=== PATIENT | female | born 1940 | race Hispanic/Latino ===

== ENCOUNTER 2023-05-18 14:15 | Emergency (ER) | payer OTHER ==
[~2023-05-18] VITALS: Ht 152.4 cm; Wt 49.9 kg
[2023-05-18 15:19] LABS: HEMATOCRIT 38.7 % (36-48); MEAN CORPUSCULAR HEMOGLOBIN 29.1 pg (27.0-33.0); MEAN CORPUSCULAR HGB CONC 33.6 g/dL (32.0-36.0); MEAN CORPUSCULAR VOLUME 86.8 fL (79-99); PLATELET COUNT (AUTO) 246 K/uL (130-400); RED BLOOD CELL COUNT(AUTO) 4.46 MIL/uL (4.00-5.50); RED CELL DISTRIBUTION WIDTH 13.1 % (11.0-15.5); WHITE BLOOD COUNT (AUTO) 7.7 K/uL (4.8-10.8)
[2023-05-18 15:44] LABS: BAND NEUTROPHILS % (MANUAL) 19 % (0-2); BASOPHILS % (MANUAL) 2 % (0-2); LYMPHOCYTES % (MANUAL) 9 % (22-44); MONOCYTES % (MANUAL) 7 % (2-9); SEGMENTED NEUTROPHILS % 63 % (40-70); TOTAL CELLS COUNTED 100
[2023-05-18 15:45] LABS: MAN.DIFF COMMENT-IMPRESSION MANUAL DIFFERENTIAL; PLATELET MORPHOLOGY COMMENT ADEQUATE; WBC MORPHOLOGY CONSISTENT W/DIFF
[2023-05-18 15:54] LABS: POTASSIUM 4.2 mmol/L (3.5-5.1)
[2023-05-18 15:55] LABS: ADD UA MICROSCOPIC YES; APPEARANCE,URINE CLEAR (CLEAR); BILIRUBIN,URINE NEGATIVE (NEGATIVE); COLOR,URINE YELLOW (YELLOW); GLUCOSE, URINE (UA) >=1000 mg/dL (NEGATIVE); KETONES,URINE NEGATIVE (NEGATIVE); LEUKOCYTE ESTERASE ,URINE 250 Leu/uL (NEGATIVE); NITRATE,URINE 2+ (NEGATIVE); OCCULT BLOOD,URINE SMALL (NEGATIVE); PROTEIN,URINE NEGATIVE (NEGATIVE); UROBILINOGEN,URINE 0.2 mg/dL (0.2-1.0)
[2023-05-18 15:56] LABS: BACTERIA,URINE MOD /HPF (None Seen); MUCUS,URINE RARE LPF (None Seen); SQUAMOUS EPITHELIAL CELL,UR RARE /HPF (0-2); WBC,URINE 51-100 /HPF (0-1)
[2023-05-18 15:59] LABS: ALBUMIN 3.4 g/dL (3.5-5.0); BILIRUBIN,TOTAL 0.1 mg/dL (0.2-1.0); TOTAL PROTEIN, SERUM 7.4 g/dL (6.0-8.3)
[2023-05-18] MEDS ORDERED: NITR100C PO (16:51)
[2023-05-18] MEDS ORDERED: ONDA22I PO (16:51)
[2023-05-18] MEDS ORDERED: POLY17PO4 PO (16:51)
[2023-05-18 17:15] VITALS: BP 129/84; PULSE 90; RESP 18; O2SAT 9
== END 2023-05-18 17:47 | disposition home or self-care (01) ==
LOC: EDH 14:15 → MERGE 14:15 → EDBD 14:15 → EDH 17:47
DX: N30.90 Cystitis, unspecified without hematuria (principal); K59.00 Constipation, unspecified; R11.2 Nausea with vomiting, unspecified; I10 Essential (primary) hypertension; E78.00 Pure hypercholesterolemia, unspecified; E11.9 Type 2 diabetes mellitus without complications; F03.90 Unspecified dementia, unspecified severity, without behavioral disturbance, psychotic disturbance, mood disturbance, and anxiety
CPT/HCPCS: 36415; 71045; 74018; 80053; 81001; 82550; 83874; 84484; 85025; 87077; 87088; 87186; 93005

== ENCOUNTER 2024-06-14 16:47 | Inpatient (IN) | payer OTHER ==
[2024-06-14] VITALS (13 sets, daily range): BP systolic 108–176; BP diastolic 58–90; PULSE 95–99; RESP 17–26; O2SAT 98–99
[~2024-06-14] VITALS: Ht 152.4 cm; Wt 41.0 kg
[~2024-06-14 16:47] MED LIST: NITR100C PO; ONDA22I PO; POLY17PO4 PO
[2024-06-14] MEDS ORDERED: ZOSYN 3.375GM +NS 50ML IV SCH (17:00)
[2024-06-14 17:20] LABS: BASOPHILS # (AUTO) 0.06 K/uL (0.00-0.20); BASOPHILS % (AUTO) 0.2 % (0.0-5.0); EOSINOPHILS # (AUTO) 0.03 K/uL (0.00-0.70); EOSINOPHILS % (AUTO) 0.1 % (0.0-8.0); HEMATOCRIT 48.2 % (36-48); IMMATURE GRANULOCYTE ABSOLUTE 0.28 K/uL (0-1); LYMPHOCYTES # (AUTO) 2.9 K/uL (1.0-4.8); LYMPHOCYTES % (AUTO) 11.3 % (21.0-51.0); MEAN CORPUSCULAR HEMOGLOBIN 27.8 pg (27.0-33.0); MEAN CORPUSCULAR HGB CONC 31.1 g/dL (32.0-36.0); MEAN CORPUSCULAR VOLUME 89.4 fL (79-99); MONOCYTES # (AUTO) 1.8 K/uL (0.1-1.0); NEUTROPHILS # (AUTO) 20.7 K/uL (1.8-7.7); NEUTROPHILS % (AUTO) 80.3 % (40.0-77.0); PLATELET COUNT (AUTO) 431 K/uL (130-400); RED BLOOD CELL COUNT(AUTO) 5.39 MIL/uL (4.00-5.50); RED CELL DISTRIBUTION WIDTH 15.2 % (11.0-15.5); WHITE BLOOD COUNT (AUTO) 25.8 K/uL (4.8-10.8)
--- NOTE | 2024-06-14 17:21 | HMCIMG ---
CHEST 1VW HISTORY: Sepsis COMPARISON: None FINDINGS: A frontal projection of the chest was obtained. No acute pulmonary infiltrates is seen. The heart is normal in size. Mild COPD changes are seen. No evidence of aortic calcification is seen. IMPRESSION: 1. No acute pulmonary infiltrate is seen.
[2024-06-14] MEDS ORDERED: PIP/TAZ ZOSYN 3.375G 3.375 GM VIAL IVPB SCH ×3 (17:30→18:00)
--- NOTE | 2024-06-14 17:35 | ERN ---
General Chief Complaint: Fever Stated Complaint: FEVER Time Seen by MD: 16:40 History of Present Illness Initial Comments 83-year-old female brought in by EMS from home for fever. Patient has a history of dementia, unable to provide history. According to EMS, the patient was on hospice for advanced dementia, but the family reports that the patient got a fever and wants the patient treated with full treatment. Patient is unable to answer any questions. She does not appear in any distress but she has a heart rate of 130 and a fever. Medical history: Hypertension, diabetes, Alzheimer's Allergies: Coded Allergies: No Known Drug Allergies (Unverified Allergy, Unknown, 06/14/24) Home Meds Discontinued Reported Medications Simvastatin (Simvastatin) 5 Mg Tablet, 1 TAB PO HS for 30 Days, #30 TAB 0 Refills 06/14/24 Memantine HCl (Memantine HCl) 5 Mg Tablet, 5 MG PO DAILY, TAB 06/14/24 Quetiapine Fumarate (Quetiapine Fumarate) 50 Mg Tablet, 1 TAB PO HS for 30 Days, #30 TAB 0 Refills 06/14/24 Metformin HCl (Metformin HCl) 500 Mg Tablet, 1 TAB PO BID for 30 Days, #60 TAB 0 Refills 06/14/24 Candesartan Cilexetil (Candesartan Cilexetil) 8 Mg Tablet, 1 TAB PO DAILY for 30 Days, #30 TAB 0 Refills 06/14/24 Past Medical History Past Medical History: Diabetes-Type II, High Cholesterol Medical History Other: ALZHIMER'S, DEMENTIA, Past Surgical History: Other ROS Dictation Unable to obtain due to patient's altered mentation and at baseline Physical Exam Physical Exam Dictation VITAL SIGNS: Reviewed. GENERAL APPEARANCE: Baseline mentation, altered, does not speak, no obvious distress. HEAD AND FACE: Non-traumatic. EYES: PERRL, pink conjunctivas, eyelid no trauma, anterior chamber clear. EARS: Pinnas intact and no signs of trauma or erythema. Ear canals clear and no discharge. TMs no erythema. NOSE: No discharge, no bleeding. OROPHARYNX: Mouth normal, teeth no caries, tongue pink. Pharynx clear, no erythema. Tonsils no exudates, no abscesses noted. Mucous membrane moist. NECK: Supple, non-tender, no thyromegaly, no masses, no JVD, no bruits. BREAST: Deferred. CHEST: No tenderness, no crepitus, no paradoxical movement, no retractions. LUNGS: Clear, well-ventilated, symmetric, no rales, no wheezing, no rhonchi, no stridor, good breath sounds bilaterally. HEART: Regular rate, regular rhythm, no murmur, no gallops. VASCULAR: No peripheral edema. ABDOMEN: Soft, positive bowel sounds, nondistended, no guarding, nontender, no rebound, no masses no hepatomegaly, no splenomegaly, no Davis's sign, no hernias. RECTAL: Deferred. GENITAL: Deferred. NEUROLOGICAL: Normal speech, gross motor function intact, gross sensory function intact. MUSCULOSKELETAL: Neck nontender, full range of motion, back nontender, full range of motion. EXTREMITIES: Nontender, full range of motion. SKIN: Color pink, dry, no turgor, no rash, no lacerations, no abrasions, no contusions. LYMPHATICS: Deferred. Results Laboratory and Microbiology Lab and Micro Result Laboratory Tests Test 06/14/24 17:04 06/14/24 18:36 06/14/24 18:44 White Blood Count 25.8 K/uL (4.8-10.8) H Red Blood Count 5.39 MIL/uL (4.00-5.50) Hemoglobin 15.0 g/dL (12.0-16.0) Hematocrit 48.2 % (36-48) H Mean Corpuscular Volume 89.4 fL (79-99) Mean Corpuscular Hemoglobin 27.8 pg (27.0-33.0) Mean Corpuscular Hemoglobin Concent 31.1 g/dL (32.0-36.0) L Red Cell Distribution Width 15.2 % (11.0-15.5) Platelet Count 431 K/uL (130-400) H Mean Platelet Volume 11.2 fL (7.5-10.5) H Immature Granulocyte % (Auto) 1.1 % (0-1) H Neutrophils (%) (Auto) 80.3 % (40.0-77.0) H Lymphocytes (%) (Auto) 11.3 % (21.0-51.0) L Monocytes (%) (Auto) 7.0 % (3.0-13.0) Eosinophils (%) (Auto) 0.1 % (0.0-8.0) Basophils (%) (Auto) 0.2 % (0.0-5.0) Neutrophils # (Auto) 20.7 K/uL (1.8-7.7) H Lymphocytes # (Auto) 2.9 K/uL (1.0-4.8) Monocytes # (Auto) 1.8 K/uL (0.1-1.0) H Eosinophils # (Auto) 0.03 K/uL (0.00-0.70) Basophils # (Auto) 0.06 K/uL (0.00-0.20) Absolute Immature Granulocyte (auto 0.28 K/uL (0-1) Nucleated Red Blood Cells 0.0 % (0.0-0.19) Sodium Level 162 mmol/L (136-145) *H 165 mmol/L (136-145) *H Potassium Level 3.7 mmol/L (3.5-5.1) 3.5 mmol/L (3.5-5.1) Chloride Level 118 mmol/L (101-111) H 118 mmol/L (101-111) H Carbon Dioxide Level 19 mmol/L (21-32) L 21 mmol/L (21-32) Blood Urea Nitrogen 75 mg/dL (7-18) *H 77 mg/dL (7-18) *H Creatinine 2.4 mg/dL (0.5-1.0) H 2.7 mg/dL (0.5-1.0) H Glomerular Filtration Rate Calc 20 mL/min (>90) 17 mL/min (>90) Random Glucose 801 mg/dL (70-105) *H 859 mg/dL (70-105) *H Lactic Acid Level 4.5 mmol/L (0.8-2.5) H Total Calcium 10.5 mg/dL (8.5-10.1) H 9.7 mg/dL (8.5-10.1) Total Bilirubin 0.4 mg/dL (0.2-1.0) Direct Bilirubin 0.1 mg/dL (0.0-0.3) Aspartate Amino Transf (AST/SGOT) 57 U/L (10-37) H Alanine Aminotransferase (ALT/SGPT) 28 U/L (12-78) Alkaline Phosphatase 155 U/L (50-136) H Total Creatine Kinase 2115 U/L (21-232) *H Troponin I High Sensitivity 83 ng/L (4-50) *H Total Protein 8.3 g/dL (6.0-8.3) Albumin 2.8 g/dL (3.5-5.0) L Urine Color YELLOW (YELLOW) Urine Appearance CLOUDY (CLEAR) H Urine pH 5.0 (5.0-8.0) Urine Specific Leeper 1.028 (1.001-1.031) Urine Protein 20 mg/dL (NEGATIVE) H Urine Glucose (UA) >=1000 mg/dL (NEGATIVE) H Urine Ketones 10 mg/dL (NEGATIVE) H Urine Occult Blood MODERATE (NEGATIVE) H Urine Nitrate NEGATIVE (NEGATIVE) Urine Bilirubin NEGATIVE mg/dL (NEGATIVE) Urine Urobilinogen 0.2 mg/dL (0.2-1.0) Urine Leukocyte Esterase 250 Ita/uL (NEGATIVE) H Urine RBC 2-5 /HPF (0-1) H Urine WBC 11-25 /HPF (0-1) H Urine Squamous Epithelial Cells RARE /HPF (0-2) Urine Bacteria RARE /HPF (None Seen) Urine Yeast RARE /HPF (None Seen) Urine Opiates Screen NEGATIVE (NEGATIVE) Urine Barbiturates Screen NEGATIVE (NEGATIVE) Urine Phencyclidine Screen NEGATIVE (NEGATIVE) Urine Amphetamines Screen NEGATIVE (NEGATIVE) Urine Benzodiazepines Screen NEGATIVE (NEGATIVE) Urine Cocaine Screen NEGATIVE (NEGATIVE) Urine Marijuana (THC) Screen NEGATIVE (NEGATIVE) MDM CC: fever Independent historian: EMS. Patient has dementia unable to provide a reliable history. Comorbidities: Advanced age, hypertension, diabetes Vital signs: Febrile, tachycardic, tachypneic. Stable blood pressure. Concern for sepsis, UTI, pneumonia, deconditioning Labs: Leukocytosis left shift no bands. Chemistry: Hypernatremia 162, BUN elevated 752 creatinine 2.4. Glucose 800. Lactic acid 4.5. CK elevated. Urinalysis positive for infection and glucose UDS negative CT head: Atrophy otherwise unremarkable Chest x-ray: Unremarkable Patient received IV fluids 30 cc/kg, insulin drip started. Vancomycin and Zosyn. On sepsis focused re-evaluation patient has stable perfusion. Blood pressure stable. We will admit for sepsis likely UTI, dehydration, hyperglycemia, KAREN, hypernatremia etc. Hospitalist consulted ED Course Orders Procedure Category Date Status Time Iv Insertion CPOE 06/14/24 Transmitted 16:50 Pulse Ox(Continuous) RT 06/14/24 Transmitted 16:50 Vital Signs Per CPOE 06/14/24 Transmitted Routine 16:50 12 Lead Ekg Tracing- EKG 06/14/24 Complete Technical 16:50 Cbc With Differential LAB 06/14/24 Complete 16:50 Blood Cult SYDNEY 06/14/24 In Process 16:50 Urinalysis Profile LAB 06/14/24 Complete 16:50 Culture Urine SYDNEY 06/14/24 Complete 16:50 Creatine Kinase, Total LAB 06/14/24 Complete 16:50 Troponin I High LAB 06/14/24 Complete Sensitivity 16:50 Lactic Acid LAB 06/14/24 Complete 16:50 Basic Metabolic Panel LAB 06/14/24 Complete 16:50 Chest 1vw RAD 06/14/24 Resulted 17:00 Vancomycin 1g/250ml PHA 06/14/24 Complete Kit (Vancomycin 1g/2 17:00 Hepatic Function Panel LAB 06/14/24 Complete 17:00 0.9%Nacl 1000ml (Ns PHA 06/14/24 Complete 1000ml) 17:30 Pip/Saad Zosyn 3.375g PHA 06/14/24 Complete (Zosyn 3.375 Gram V 18:00 Zosyn 3.375gm+Ns 50ml PHA 06/14/24 Complete (Zosyn 3.375gm+Ns 18:00 0.9%Nacl 1000ml (Ns PHA 06/14/24 Complete 1000ml) 18:30 Basic Metabolic Panel LAB 06/14/24 Complete 18:18 Basic Metabolic Panel LAB 06/14/24 Complete 22:18 Basic Metabolic Panel LAB 06/15/24 Complete 02:18 Basic Metabolic Panel LAB 06/15/24 Complete 06:18 Basic Metabolic Panel LAB 06/15/24 Complete 10:18 Basic Metabolic Panel LAB 06/15/24 Complete 14:18 0.9%Nacl 1000ml (Ns PHA 06/14/24 Complete 1000ml) 18:30 D5w-1/2 Ns/20meq Kcl PHA 06/14/24 Complete (D5w-1/2 Ns/20meq K 18:30 Potassium Chloride PHA 06/14/24 Complete 20meq/10ml (Kcl 20meq 18:30 Magnesium 2gm Premix PHA 06/14/24 Complete 50ml (Magnesium 2gm 18:30 Insulin Regular, PHA 11/10/24 Complete Human 3ml (Humulin R 18:30 Dextrose 5 %-0.45 % PHA 06/14/24 Complete Nacl (D5 1/2ns) 18:30 Zosyn 3.375gm+Ns 50ml PHA 06/14/24 Complete (Zosyn 3.375gm+Ns 18:30 Vital Signs(Adult CPOE 06/14/24 Transmitted Hospitalist) 18:30 Nurse To Enter Home CPOE 06/14/24 Transmitted Medication 18:30 Admit Orders ADM 06/14/24 Transmitted 18:30 Nurse Driven Porras DESHAWN 06/14/24 Complete Removal Pro 18:38 Current Medications Medications (Trade) Dose Ordered Sig/Karen Route PRN Reason Start Time Stop Time Status Last Admin Dose Admin Dextrose/Sodium Chloride 1,000 ml @ 0 mls/hr AD IV 06/14/24 18:30 06/15/24 09:09 DC Insulin Human Regular 100 unit/ Sodium Chloride 101 ml @ 0 mls/hr PROTOCOL IV 06/14/24 18:30 06/15/24 10:20 DC Magnesium Sulfate 50 ml @ 0 mls/hr PROTOCOL IV 06/14/24 18:30 06/15/24 17:58 DC Piperacillin Sod/ Tazobactam Sod 50 ml @ 12.5 mls/hr Q8H IVPB 06/14/24 18:00 06/15/24 17:58 DC 06/15/24 09:06 Piperacillin Sod/ Tazobactam Sod 50 ml @ 12.5 mls/hr Q8H IVPB 06/14/24 18:30 06/14/24 18:24 DC Piperacillin Sod/ Tazobactam Sod (Zosyn 3.375gm+NS 50ml) 3.375 gm Q8H IV 06/14/24 17:00 06/24/24 16:59 UNV Piperacillin Sod/ Tazobactam Sod (Zosyn 3.375 Gram Vial) 3.375 gm Q8H IVPB 06/14/24 17:30 06/24/24 17:29 Cancel Piperacillin Sod/ Tazobactam Sod (Zosyn 3.375 Gram Vial) 3.375 gm Q8H IVPB 06/14/24 18:00 06/14/24 17:51 DC Piperacillin Sod/ Tazobactam Sod (Zosyn 3.375 Gram Vial) 3.375 gm Q8H IVPB 06/14/24 18:00 06/24/24 17:59 Cancel Potassium Chloride 20 meq/ Sodium Chloride 1,010 ml @ 0 mls/hr PROTOCOL IV 06/14/24 18:30 06/15/24 09:09 DC 06/14/24 19:42 Potassium Chloride/Dextrose/ Sod Cl 1,000 ml @ 0 mls/hr AD IV 06/14/24 18:30 06/15/24 09:09 DC 06/15/24 09:07 Sodium Chloride 1,000 ml @ 0 mls/hr ONCE ONCE IV 06/14/24 17:30 06/14/24 17:31 DC 06/14/24 17:53 Sodium Chloride 1,000 ml @ 0 mls/hr ONCE ONCE IV 06/14/24 18:30 06/14/24 18:31 DC 06/14/24 18:45 Sodium Chloride 1,000 ml @ 200 mls/hr PROTOCOL IV 06/14/24 18:30 06/15/24 09:09 DC 06/14/24 19:42 Vancomycin HCl (Vancomycin 1g/ 250ml Kit) 1 gm Q12H IV 06/14/24 17:00 06/15/24 00:13 DC 06/14/24 18:45 Vital Signs Date Time Temp Pulse Resp B/P (MAP) Pulse Ox O2 Delivery O2 Flow Rate FiO2 06/14/24 16:51 100.9 130 24 123/85 98 DX & DISP Disposition: Inpatient Departure Impression: Primary Impression: Sepsis Additional Impressions: KAREN (acute kidney injury), Hyperosmolar hyperglycemic state (HHS), Rhabdomyolysis, Elevated troponin, Hypernatremia Critical Time: 30 minutes (Critical Care Procedure NoteAuthorized and Performed by: meTotal critical care time: Approximately 36 minutesDue to a high probability of clinically significant, life threatening deterioration, the patient required my highest level of preparedness to intervene emergently and I personally spent this critical care time directly and personally managing the patient. This critical care time included obtaining a history; examining the patient; pulse oximetry; ordering and review of studies; arranging urgent treatment with development of a management plan; evaluation of patient's response to treatment; frequent reassessment; and, discussions with other providers.This critical care time was performed to assess and manage the high probability of imminent, life-threatening deterioration that could result in multi-organ failure. It was exclusive of separately billable procedures and treating other patients and teaching time.Please see MDM section and the rest of the note for further information on patient assessment and treatment.) Condition: Stable Referrals: CHRISTIAN STOREY MD (PCP) MARC COOLEY DO Jun 14, 2024 17:35
[2024-06-14] MEDS: 0.9%NACL 1000ML 1,000 ML IV ONE ×2 (17:53→18:45)
[2024-06-14] MEDS: ZOSYN 3.375GM+NS 50ML 50 ML IVPB SCH (17:53)
--- NOTE | 2024-06-14 17:57 | EKG ---
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
[2024-06-14 18:00] LABS: CREATININE 2.4 mg/dL (0.5-1.0); POTASSIUM 3.7 mmol/L (3.5-5.1)
[2024-06-14 18:01] LABS: BILIRUBIN,DIRECT 0.1 mg/dL (0.0-0.3); BILIRUBIN,TOTAL 0.4 mg/dL (0.2-1.0); TOTAL PROTEIN, SERUM 8.3 g/dL (6.0-8.3)
[2024-06-14 18:07] LABS: ALBUMIN 2.8 g/dL (3.5-5.0)
[2024-06-14] MEDS ORDERED: MAGNESIUM 2GM PREMIX 50ML 50 ML IV SCH (18:30)
[2024-06-14] MEDS ORDERED: INSULIN REGULAR, HUMAN 3ML 100 UNIT in 0.9%NACL 100ML 100 ML IV SCH (18:30)
[2024-06-14] MEDS ORDERED: DEXTROSE 5 %-0.45 % NACL 1,000 ML IV SCH (18:30)
[2024-06-14] MEDS ORDERED: ZOSYN 3.375GM+NS 50ML 50 ML IVPB SCH (18:30)
[2024-06-14] MEDS: VANCOMYCIN KIT 1 GM/250 ML IV.KIT IV SCH (18:45)
[2024-06-14 18:53] LABS: CREATININE 2.7 mg/dL (0.5-1.0); POTASSIUM 3.5 mmol/L (3.5-5.1)
[2024-06-14] MEDS ORDERED: hydrALAZine 20MG/ML VIAL IV PRN (19:00)
[2024-06-14] MEDS ORDERED: ondanSETRON 4MG INJ IVP PRN (19:00)
[2024-06-14] MEDS ORDERED: LAbetaLOL 20MG SYG IV PRN (19:00)
[2024-06-14] MEDS ORDERED: acetaMINOPHEN 650 MG SUPPOSITORY RC PRN (19:00)
[2024-06-14] MEDS ORDERED: HYDROcodone/APAP 5/325 1 TAB TABLET PO PRN (19:00)
[2024-06-14] MEDS ORDERED: acetaMINOPHEN 325 MG TAB PO PRN (19:00)
[2024-06-14 19:01] LABS: APPEARANCE,URINE CLOUDY (CLEAR); BILIRUBIN,URINE NEGATIVE (NEGATIVE); COLOR,URINE YELLOW (YELLOW); GLUCOSE, URINE (UA) >=1000 mg/dL (NEGATIVE); KETONES,URINE 10 mg/dL (NEGATIVE); LEUKOCYTE ESTERASE ,URINE 250 Leu/uL (NEGATIVE); NITRATE,URINE NEGATIVE (NEGATIVE); OCCULT BLOOD,URINE MODERATE (NEGATIVE); PROTEIN,URINE 20 mg/dL (NEGATIVE); UROBILINOGEN,URINE 0.2 mg/dL (0.2-1.0)
[2024-06-14 19:11] LABS: ADD UA MICROSCOPIC YES
[2024-06-14 19:14] LABS: BACTERIA,URINE RARE /HPF (None Seen); MUCUS,URINE MOD LPF (None Seen); SQUAMOUS EPITHELIAL CELL,UR RARE /HPF (0-2); YEAST,URINE BUDDING RARE /HPF (None Seen)
[2024-06-14] MEDS: PoTASSium chloRIDE 20MEQ/10ML 20 MEQ in 0.9%NACL 1000ML 1,000 ML IV SCH (19:42)
[2024-06-14] MEDS: 0.9%NACL 1000ML 1,000 ML IV SCH (19:42)
[2024-06-14] MEDS: PoTASSium chloRIDE 20MEQ/100ML 100 ML IV ONE (19:43)
--- NOTE | 2024-06-14 21:00 | HP ---
[facility] HISTORY & PHYSICAL Date Patient Seen: Jun 14, 2024 Time of Visit: 21:00 Supervising Physician: Dr. Sherif Mcdonald Primary Care Physician: Dr Bustamante Outpatient Specialists: [ ] Inpatient Consults: [ ] PROBLEM LIST: Acute metabolic encephalopathy, POA Acute kidney injury, POA Rhabdomyolysis, POA HHS, normal bicarb level on initial BMP, POA Severe dehydration, POA Severe hypernatremia, POA Urinary tract infection, POA Severe sepsis, POA NSTEMI, EKG unremarkable, POA Feeding difficulty in adult, POA Electrolyte abnormality, POA Hypercalcemia, POA Lactic acidosis, likely starvation ketosis POA PLAN: Admit to ICU VS per ICU protocol Keep head of bed above 30 Aspiration precautions Keep patient NPO Continue insulin drip Trend troponin level Trend CK level Trend lactic acid level Continue empiric antibiotics Insert Porras catheter Insert NGT Obtain CT scan of the head Intubation watch Follow up code status with family Treat fever aggressively Continue free water at 150 cc/hour Continue serial labs per DKA protocol Turn patient accordingly Bilateral SCDs Avoid nephrotoxic agents Renally dose all medications Obtain a ultrasound Follow up culture results CBC, CMP, magnesium level daily Continue cardiac monitoring HPI: 83-year-old female with past medical history of early dementia, hypertension, DM type 2, hyperlipidemia who presented to ER from a local assisted living facility with complaint of generalized body weakness, alteration in mental status and found to have KAREN, severe hypernatremia, severe sepsis, acute metabolic encephalopathy, rhabdomyolysis, urinary tract infection, and HHS. Patient was seen and examined in ED with her niece present at bedside. According to her, her provided called them initially and informed them of her current condition and says that he will call EMS so that patient will be evaluated in the emergency room. In ED patient was found to be severely encephalopathic, looks very weak, and unable to answer questions appropriately. In ED chest x-ray was done and showed no acute intrapulmonary process, however [place] [address], hemoglobin of 15 , and hematocrit of 48, her chemistry is significant for sodium level of 162, serum glucose of 800, creatinine level of 2.4, BUN of 75, initial troponin level of 83, and CK level of more than 2100. Her lactic acid was also elevated at 4.5. Her UA is significant for leukoesterase there is also mild ketonuria. COVID and flu tests are currently pending at this time. In ED patient was started on IV fluids, empiric antibiotics, and insulin drip per [facility] protocol. We will obtain renal ultrasound and stat head CT. Patient is unmarried, and does not have any children. Her POA is her sister. Apparently patient was hospice but family verbalized desire for medical management. Waiting for family members to decide on code status at this time. Unable to complete ROS due to current mental state. Patient is encephalopathic and unable to answer questions appropriately, visibly weak and nonverbal. At present patient is currently hemodynamically stable, afebrile, and currently on insulin drip. We will start patient on free water flushes via NGT and we will do serial labs per [facility] protocol. PAST MEDICAL HX: see above PAST SURGICAL HX: noncontributory SOCIAL HISTORY: No tobacco, ETOH, or illicit drug use Coded Allergies: No Known Drug Allergies (Unverified Allergy, Unknown, 06/14/24) REVIEW OF SYSTEMS: Unable to obtain due to altered mental status PHYSICAL EXAM: GENERAL: Confused, looks very weak, encephalopathic HEENT: Very dry mucous membrane NECK: Supple, no JVD, trachea midline LUNGS: Clear breath sounds bilaterally. No wheezes HEART: Regular rate and rhythm. Normal S1 and S2, without murmurs ABD: Abdomen soft, nontender. Bowel sounds present EXT: No clubbing cyanosis or edema NEURO: Encephalopathic Vital Signs (last 8hr) Date Time Temp Pulse Resp B/P (MAP) Pulse Ox O2 Delivery O2 Flow Rate FiO2 06/14/24 16:51 100.9 130 24 123/85 98 LABS: Hematology Labs: Test 06/14/24 17:04 Range/Units White Blood Count 25.8 H 4.8-10.8 K/uL Red Blood Count 5.39 4.00-5.50 MIL/uL Hemoglobin 15.0 12.0-16.0 g/dL Hematocrit 48.2 H 36-48 % Mean Corpuscular Volume 89.4 79-99 fL Mean Corpuscular Hemoglobin 27.8 27.0-33.0 pg Mean Corpuscular Hemoglobin Concent 31.1 L 32.0-36.0 g/dL Red Cell Distribution Width 15.2 11.0-15.5 % Platelet Count 431 H 130-400 K/uL Mean Platelet Volume 11.2 H 7.5-10.5 fL Immature Granulocyte % (Auto) 1.1 H 0-1 % Neutrophils (%) (Auto) 80.3 H 40.0-77.0 % Lymphocytes (%) (Auto) 11.3 L 21.0-51.0 % Monocytes (%) (Auto) 7.0 3.0-13.0 % Eosinophils (%) (Auto) 0.1 0.0-8.0 % Basophils (%) (Auto) 0.2 0.0-5.0 % Neutrophils # (Auto) 20.7 H 1.8-7.7 K/uL Lymphocytes # (Auto) 2.9 1.0-4.8 K/uL Monocytes # (Auto) 1.8 H 0.1-1.0 K/uL Eosinophils # (Auto) 0.03 0.00-0.70 K/uL Basophils # (Auto) 0.06 0.00-0.20 K/uL Absolute Immature Granulocyte (auto 0.28 0-1 K/uL Nucleated Red Blood Cells 0.0 0.0-0.19 % Chemistry Labs: Test 06/14/24 19:46 06/14/24 18:36 06/14/24 17:04 Range/Units Whole Blood Glucose > 600 *H 70-110 MG/DL Bedside Glucose Comment Protocol Initiated Sodium Level 165 *H 136-145 mmol/L Potassium Level 3.5 3.5-5.1 mmol/L Chloride Level 118 H 101-111 mmol/L Carbon Dioxide Level 21 21-32 mmol/L Blood Urea Nitrogen 77 *H 7-18 mg/dL Creatinine 2.7 H 0.5-1.0 mg/dL Glomerular Filtration Rate Calc 17 >90 mL/min Random Glucose 859 *H 70-105 mg/dL Total Calcium 9.7 8.5-10.1 mg/dL Lactic Acid Level 4.5 H 0.8-2.5 mmol/L Total Bilirubin 0.4 0.2-1.0 mg/dL Direct Bilirubin 0.1 0.0-0.3 mg/dL Aspartate Amino Transf (AST/SGOT) 57 H 10-37 U/L Alanine Aminotransferase (ALT/SGPT) 28 12-78 U/L Alkaline Phosphatase 155 H 50-136 U/L Total Creatine Kinase 2115 *H 21-232 U/L Troponin I High Sensitivity 83 *H 4-50 ng/L Total Protein 8.3 6.0-8.3 g/dL Albumin 2.8 L 3.5-5.0 g/dL DIAGNOSTICS / RADIOLOGY RESULTS: CHEST 1VW HISTORY: Sepsis COMPARISON: None FINDINGS: A frontal projection of the chest was obtained. No acute pulmonary infiltrates is seen. The heart is normal in size. Mild COPD changes are seen. No evidence of aortic calcification is seen. IMPRESSION: 1. No acute pulmonary infiltrate is seen. PLAN NEURO: Minimize central acting medications as possible. Fall Precautions. Well lighted room through the day and minimize interruptions through the night to prevent acute delirium. PULMONARY: Supplemental 02 as needed Titrate Fio2 to keep Spo2 > or = 90% DuoNebs and CPT as needed IS hourly while awake for pulmonary hygiene Out of bed to chair as tolerated VAP Bundle CARDIOVASCULAR: Follow hemodynamics. Titrate vasopressor to keep MAP >65 or systolic blood pressure >95mmHg DIPS: Insulin LINES: PIV, Porras GI & NUTRITION: NPO Insert NGT Aspirations precautions Prokinetic agents and laxatives as needed KIDNEYS & ELECTROLYTES: Strict monitoring of intake and output Daily weights Avoid nephrotoxic agents Monitor electrolytes and replace as needed Goal urine output of 30mL/hr or 0.5mL/kg/hr ENDOCRINE: Maintain blood glucose between 100-180 at all times. Insulin sliding scale for blood glucose management INFECTIOUS DISEASE: Trend temperature. Roe-culture if febrile. Micro: [ ] Antibiotics: Vancomycin and Zosyn HEMATOLOGY & COAGULATION: Monitor H&H. Keep Hgb > 7 Transfuse 1 unit of PRBC for Hgb < 7 Transfuse 1 pack of platelets of platelets < 20, 000 Watch for any signs and symptoms of bleeding SKIN: Pressure ulcer prevention per facility protocol Rehab: PT/OT Prophylaxis: GI: PPI DVT: Bilateral SCDs Code Status: Full Resuscitation Disposition: ICU Other: Total patient care time exceeds 35 minutes excluding all procedures. Supervising physician: INES Jennings AGACNP Jun 14, 2024 21:00
[2024-06-14] MEDS ORDERED: SIMV5TAB58 PO (22:33)
[2024-06-14] MEDS ORDERED: METF-444 PO (22:33)
[2024-06-14] MEDS ORDERED: MEMA5TAB16 PO (22:33)
[2024-06-14] MEDS ORDERED: CAND8TAB14 PO (22:33)
[2024-06-14] MEDS ORDERED: QUET50TA24 PO (22:33)
[2024-06-14] MEDS: PANTOPrazole 40 MG/VIAL IVP SCH (23:10)
[2024-06-14] MEDS: HEParin 5,000 UNIT VIAL SQ SCH (23:11)
[2024-06-14 23:19] LABS: CREATININE 2.4 mg/dL (0.5-1.0)
[2024-06-14] MEDS: ALBUMIN (HUMAN) 5% 500 ML IV SCH (23:22)
[2024-06-14] MEDS: IpraTROPium 0.5 MG/2.5 ML INH IH SCH (23:23)
[2024-06-14] MEDS: IpraTROPium 0.5 MG/2.5 ML INH IH ONE (23:28)
[2024-06-15] VITALS (29 sets, daily range): BP systolic 123–188; BP diastolic 55–111; PULSE 70–99; RESP 13–36; TEMP 98.5–100.5; O2SAT 97–100
[2024-06-15 00:05] LABS: AMPHET/METH SCREEN,URINE NEGATIVE (NEGATIVE); BARBITURATE SCREEN, URINE NEGATIVE (NEGATIVE); BENZODIAZEPINES SCREEN,URINE NEGATIVE (NEGATIVE); CANNABINOID SCREEN,URINE NEGATIVE (NEGATIVE); COCAINE SCREEN,URINE NEGATIVE (NEGATIVE); OPIATE SCREEN,URINE NEGATIVE (NEGATIVE); PHENCYCLIDINE SCREEN,URINE NEGATIVE (NEGATIVE)
[2024-06-15] MEDS ORDERED: VANCOMYCIN PROTOCOL PER PHARMACY IV SCH (00:30)
[2024-06-15] MEDS: PoTASSium chloRIDE 10MEQ/100ML 100 ML IV PRN (00:45)
--- NOTE | 2024-06-15 01:23 | HMCIMG ---
US RENAL SONOGRAM HISTORY: Acute renal insufficiency COMPARISON: None TECHNIQUE: Renal and bladder ultrasound study was performed. FINDINGS: The right kidney measures 8.5 x 3.1 x 4.3 cm. The left kidney is not well seen due to overlying bowel gas. No hydronephrosis is seen of the right kidney. Bladder is poorly distended with Porras catheter. IMPRESSION: 1. Left kidney is not well visualized. No right hydronephrosis is seen.
[2024-06-15 01:50] LABS: CREATININE 2.5 mg/dL (0.5-1.0)
[2024-06-15 04:44] LABS: BASOPHILS # (AUTO) 0.04 K/uL (0.00-0.20); BASOPHILS % (AUTO) 0.3 % (0.0-5.0); EOSINOPHILS # (AUTO) 0.08 K/uL (0.00-0.70); EOSINOPHILS % (AUTO) 0.5 % (0.0-8.0); HEMATOCRIT 38.3 % (36-48); IMMATURE GRANULOCYTE ABSOLUTE 0.17 K/uL (0-1); LYMPHOCYTES # (AUTO) 2.4 K/uL (1.0-4.8); MEAN CORPUSCULAR HEMOGLOBIN 28.5 pg (27.0-33.0); MEAN CORPUSCULAR HGB CONC 31.1 g/dL (32.0-36.0); MEAN CORPUSCULAR VOLUME 91.6 fL (79-99); MONOCYTES # (AUTO) 0.6 K/uL (0.1-1.0); MONOCYTES % (AUTO) 3.8 % (3.0-13.0); NEUTROPHILS # (AUTO) 12.6 K/uL (1.8-7.7); NEUTROPHILS % (AUTO) 79.3 % (40.0-77.0); PLATELET COUNT (AUTO) 103 K/uL (130-400); RED BLOOD CELL COUNT(AUTO) 4.18 MIL/uL (4.00-5.50); RED CELL DISTRIBUTION WIDTH 15.3 % (11.0-15.5); WHITE BLOOD COUNT (AUTO) 15.9 K/uL (4.8-10.8)
[2024-06-15 05:12] LABS: % IRON SATURATION 30.6 % (22-44)
[2024-06-15 05:33] LABS: SODIUM SERUM 162 mmol/L (136-145)
[2024-06-15 05:34] LABS: CARBON DIOXIDE 24 mmol/L (21-32); CHLORIDE 123 mmol/L (101-111); CREATININE 2.1 mg/dL (0.5-1.0); GLUCOSE,RANDOM 441 mg/dL (70-105); UREA NITROGEN, BLOOD 62 mg/dL (7-18)
[2024-06-15 05:35] LABS: AMMONIA < 10 umol/L (11-32); CREATINE KINASE, TOTAL 6778 U/L (21-232); GLOMERULAR FILTR. RATE CALC 2 mL/min (>90); PHOSPHORUS 2.3 mg/dL (2.5-4.9)
[2024-06-15 05:36] LABS: THYROID STIMULATING HORMONE 1.66 uIU/mL (0.36-3.74)
[2024-06-15 06:22] LABS: HEMOGLOBIN A1C 11.6 % (4.0-6.0)
[2024-06-15 07:17] LABS: CREATININE 1.9 mg/dL (0.5-1.0); POTASSIUM 3.7 mmol/L (3.5-5.1)
--- NOTE | 2024-06-15 08:20 | HMCIMG ---
Exam: NONCONTRAST CT BRAIN REASON: AMS. COMPARISON: None. TECHNIQUE: Images are obtained from vertex to the skull base. The exam was performed without IV contrast. FINDINGS: There are generous ventricles and sulci. There is decreased attenuation in the deep central white matter. These findings are consistent with atrophy. There are no acute appearing focal parenchymal lesions. There is no evidence of mass, intracranial hemorrhage or acute stroke. Posterior fossa and brainstem structures appear unremarkable. There are no abnormal fluid collections. Extra cranial soft tissues appear unremarkable as well. IMPRESSION: 1. Atrophy, no acute finding. CT was performed with one or more following dose reduction techniques: automated exposure control, adjustment of the mA and kv according to patient's size, or use of a iterative reconstruction technique.
[2024-06-15] MEDS: D5W-1/2 NS/20MEQ KCL 1,000 ML IV SCH (09:07)
[2024-06-15] MEDS ORDERED: PoTASSium chl 10% ELIXIR 20MEQ 20 MEQ/15 ML UDCUP PO PRN (09:30)
[2024-06-15] MEDS ORDERED: PoTASSium chloRIDE 20MEQ ER 20 MEQ ERTAB PO PRN (09:30)
[2024-06-15] MEDS ORDERED: PoTASSium chloRIDE 20MEQ/100ML 100 ML IV PRN ×2 (09:30)
--- NOTE | 2024-06-15 09:42 | PN ---
[facility] PROGRESS NOTE Date Patient Seen: Jun 15, 2024 Time of Visit: 09:41 Supervising Physician: Cuong Gutierrez MD Primary Care Physician: Dr Bustamante Outpatient Specialists: [ ] Inpatient Consults: [ ] PROBLEM LIST: Acute metabolic encephalopathy, POA Acute kidney injury, POA Rhabdomyolysis, POA HHS, normal bicarb level on initial BMP, POA Severe dehydration, POA Severe hypernatremia, POA Urinary tract infection, POA Severe sepsis, POA NSTEMI, EKG unremarkable, POA Feeding difficulty in adult, POA Electrolyte abnormality, POA Hypercalcemia, POA Lactic acidosis, likely starvation ketosis POA Suspect right leg ischemia, POA PLAN: Admit to ICU VS per ICU protocol Keep head of bed above 30 Aspiration precautions Keep patient NPO Continue insulin drip Trend troponin level Trend CK level Trend lactic acid level Continue empiric antibiotics Insert Porras catheter Insert NGT Obtain CT scan of the head Intubation watch Follow up code status with family Treat fever aggressively Continue free water at 150 cc/hour Continue serial labs per DKA protocol Turn patient accordingly Bilateral SCDs Avoid nephrotoxic agents Renally dose all medications Obtain a ultrasound Follow up culture results CBC, CMP, magnesium level daily Continue cardiac monitoring INTERVAL HISTORY: Patient continues encephalopathic, altered and lethargic. Patient does not answer to name follow commands. Moans and grimaces. Right lower extremity discolored and cold to touch. Nonpalpable pulse to right foot. On heparin drip per protocol for NSTEMI. Patient has been afebrile since yesterday with a T-max of 100.9. She has been hemodynamically stable with a blood pressure 138/62 with a heart rate in the 80s saturating 96% on room air, urine output 1.3 L. on laboratory today white count decreased to 15.9 H&H 11.9/38.3 with a platelet count of [id number]. Lactic acid 5.4 this morning. Sodium 167 chloride 131 BUN 24 creatinine 1.5 with a GFR of 34 slightly improving glucose 144 mg/dL total calcium 8.3 magnesium 1.7 LR 30 mL/kilogram of isotonic fluids ordered and administered per RN. IV fluids changed to D5 at 75 mL/hour. Patient continues on insulin drip. Ultrasound arterial bilateral lower extremity shows absent blood flow with pulling the entire right leg from common femoral artery down work. No evidence of inflow occlusion of the left. Right leg shows partial DVT in the right proximal and mid superficial femoral vein. Spoke to main decision maker over the phone Sandy Crawford, she is unable to come in person to the hospital due to receiving cancer treatment at this time. I discussed with her the current patient findings and informed per patient has grim prognosis. Patient is currently DNR and was previously on hospice. Recommended hospice and comfort measures to avoid suffering. Sandy Crawford main decision maker has agreed for comfort measures only and wishes to stop further painful testing such as needed sticks or painful procedures. She requested for patient to be in comfort measures only while she awaits for hospice evaluation for inpatient Hospice or out of hospital hospice. Notified casework specialist Daisy. REVIEW OF SYSTEMS: Unable to obtain due to altered mental status PHYSICAL EXAM: GENERAL: Confused, looks very weak, encephalopathic HEENT: Very dry mucous membrane NECK: Supple, no JVD, trachea midline LUNGS: Clear breath sounds bilaterally. No wheezes HEART: Regular rate and rhythm. Normal S1 and S2, without murmurs ABD: Abdomen soft, nontender. Bowel sounds present EXT: No clubbing cyanosis or edema, right lower extremity discoloration cold to touch absent right pedal pulse. NEURO: Encephalopathic Vital Signs (last 8hr) Date Time Temp Pulse Resp B/P (MAP) Pulse Ox O2 Delivery O2 Flow Rate FiO2 06/15/24 08:30 82 35 188/111 100 Room Air 06/15/24 08:00 84 31 152/68 100 Room Air 06/15/24 07:30 85 28 148/65 100 Room Air 06/15/24 07:00 82 27 141/79 100 Room Air 06/15/24 06:30 81 32 135/68 100 Room Air 06/15/24 06:27 84 18 06/15/24 06:00 85 28 145/60 100 Room Air 06/15/24 05:30 84 30 143/58 100 Room Air 06/15/24 05:00 86 33 144/70 100 Room Air 06/15/24 04:30 82 27 142/61 100 Room Air 06/15/24 04:00 89 36 138/58 100 Room Air 06/15/24 04:00 99 Room Air* 0 21 06/15/24 03:00 96 23 140/72 100 Room Air 06/15/24 02:30 91 32 159/82 100 Room Air 06/15/24 02:00 90 30 153/66 100 Room Air LABS: Hematology Labs: Test 06/15/24 04:13 Range/Units White Blood Count 15.9 #H 4.8-10.8 K/uL Red Blood Count 4.18 # 4.00-5.50 MIL/uL Hemoglobin 11.9 #L 12.0-16.0 g/dL Hematocrit 38.3 # 36-48 % Mean Corpuscular Volume 91.6 79-99 fL Mean Corpuscular Hemoglobin 28.5 27.0-33.0 pg Mean Corpuscular Hemoglobin Concent 31.1 L 32.0-36.0 g/dL Red Cell Distribution Width 15.3 11.0-15.5 % Platelet Count 103 #L 130-400 K/uL Mean Platelet Volume 10.0 7.5-10.5 fL Immature Granulocyte % (Auto) 1.1 H 0-1 % Neutrophils (%) (Auto) 79.3 H 40.0-77.0 % Lymphocytes (%) (Auto) 15.0 L 21.0-51.0 % Monocytes (%) (Auto) 3.8 3.0-13.0 % Eosinophils (%) (Auto) 0.5 0.0-8.0 % Basophils (%) (Auto) 0.3 0.0-5.0 % Neutrophils # (Auto) 12.6 H 1.8-7.7 K/uL Lymphocytes # (Auto) 2.4 1.0-4.8 K/uL Monocytes # (Auto) 0.6 0.1-1.0 K/uL Eosinophils # (Auto) 0.08 0.00-0.70 K/uL Basophils # (Auto) 0.04 0.00-0.20 K/uL Absolute Immature Granulocyte (auto 0.17 0-1 K/uL Nucleated Red Blood Cells 0.0 0.0-0.19 % Chemistry Labs: Test 06/15/24 08:56 06/15/24 07:02 06/15/24 04:13 06/15/24 02:56 Range/Units Whole Blood Glucose 174 H 70-110 MG/DL Sodium Level 169 *H 136-145 mmol/L Potassium Level 3.7 3.5-5.1 mmol/L Chloride Level 131 *H 101-111 mmol/L Carbon Dioxide Level 24 21-32 mmol/L Blood Urea Nitrogen 61 H 7-18 mg/dL Creatinine 1.9 H 0.5-1.0 mg/dL Glomerular Filtration Rate Calc 26 >90 mL/min Random Glucose 339 H 70-105 mg/dL Lactic Acid Level 5.4 H 0.8-2.5 mmol/L Total Calcium 8.5 8.5-10.1 mg/dL Hemoglobin A1c 11.6 H 4.0-6.0 % Estimated Average Glucose (eAG) 286 H 70-126 mg/dL Phosphorus Level 2.3 L 2.5-4.9 mg/dL Magnesium Level 1.90 1.80-2.40 mg/dL Iron Level 34 L 50-170 mcg/dL Total Iron Binding Capacity 111 L 250-450 mcg/dL Percent Iron Saturation 30.6 22-44 % Ammonia < 10 L 11-32 umol/L Total Creatine Kinase 6778 #*H 21-232 U/L Troponin I High Sensitivity 468.2 *H 4-50 ng/L Procalcitonin 0.92 H 0.05-0.5 ng/mL Thyroid Stimulating Hormone (TSH) 1.66 0.36-3.74 uIU/mL Bedside Glucose Comment Notified Nurse Test 06/14/24 17:04 Range/Units Total Bilirubin 0.4 0.2-1.0 mg/dL Direct Bilirubin 0.1 0.0-0.3 mg/dL Aspartate Amino Transf (AST/SGOT) 57 H 10-37 U/L Alanine Aminotransferase (ALT/SGPT) 28 12-78 U/L Alkaline Phosphatase 155 H 50-136 U/L Total Protein 8.3 6.0-8.3 g/dL Albumin 2.8 L 3.5-5.0 g/dL DIAGNOSTICS / RADIOLOGY RESULTS: Signed PATIENT: MITCHELL HAAS MR#: [id number] : 1940 SEX: F AGE: 83 LOCATION: 2BH ORDER 3 [facility]US: [facility] REPORT#: [id number] SERVICE 4 REASON: asses fro dvt ORDERING PHYSICIAN: MILADY ARTEAGA PROCEDURE: ART B LE - US ARTERIAL BILAT LOW EXT DUPL US ARTERIAL BILAT LOW EXT DUPL REASON: asses fro dvt COMPARISON: None TECHNIQUE: Bilateral lower extremity arterial Doppler evaluation was performed with spectral analysis and color flow imaging. FINDINGS: Right lower extremity shows no visible flow. This is true from common femoral artery through the foot. Left lower extremity shows biphasic waveforms common femoral artery through the popliteal artery. Biphasic waveforms are present posterior tibial, anterior tibial and dorsalis pedis arteries as well. There is no evidence of significant arterial inflow occlusion on the left. Impression: 1. Absent blood flow visible in the entire right leg from common femoral artery downward. 2. No evidence of inflow occlusion on the left. 3. These findings discussed with patient's care team at the time of dictation. Bilateral venous Doppler ultrasound was performed as well. There are normal findings on the left. Right leg shows partial deep venous thrombosis in the right proximal and mid superficial femoral vein DICTATED BY: ROBERTA MONACO MD DATE: 06/15/241436 ELECTRONICALLY SIGNED BY: ROBERTA MONACO MD DATE: 06/15/24 1447 PLAN Patient DNR Arterial ultrasound of bilateral lower extremities Isotonic fluids 30 mL/kilogram Stop all other IV fluids and start D5 NS at 75 mL/kilogram Discuss goals of care with decision maker Recommend medical affairs manager for evaluation of general inpatient hospice versus other hospital hospice. After discussing ultrasound arterial of right lower extremity findings with family and decision maker. Decision was made by Sandy Crawford for comfort measures only and hospice. NEURO: Minimize central acting medications as possible. Fall Precautions. Well lighted room through the day and minimize interruptions through the night to prevent acute delirium. PULMONARY: Supplemental 02 as needed Titrate Fio2 to keep Spo2 > or = 90% DuoNebs and CPT as needed IS hourly while awake for pulmonary hygiene Out of bed to chair as tolerated VAP Bundle CARDIOVASCULAR: Follow hemodynamics. Titrate vasopressor to keep MAP >65 or systolic blood pressure >95mmHg DIPS: Insulin LINES: PIV, Porras GI & NUTRITION: NPO Insert NGT Aspirations precautions Prokinetic agents and laxatives as needed KIDNEYS & ELECTROLYTES: Strict monitoring of intake and output Daily weights Avoid nephrotoxic agents Monitor electrolytes and replace as needed Goal urine output of 30mL/hr or 0.5mL/kg/hr ENDOCRINE: Maintain blood glucose between 100-180 at all times. Insulin sliding scale for blood glucose management INFECTIOUS DISEASE: Trend temperature. Roe-culture if febrile. Micro: [ ] Antibiotics: Vancomycin and Zosyn HEMATOLOGY & COAGULATION: Monitor H&H. Keep Hgb > 7 Transfuse 1 unit of PRBC for Hgb < 7 Transfuse 1 pack of platelets of platelets < 20, 000 Watch for any signs and symptoms of bleeding SKIN: Pressure ulcer prevention per facility protocol Rehab: PT/OT Prophylaxis: GI: PPI DVT: Patient on heparin drip. Code Status: Full Resuscitation Disposition: ICU Other: Total patient care time exceeds 35 minutes excluding all procedures. MILADY ARTEAGA [facility] Jun 15, 2024 09:42
[2024-06-15] MEDS: LACTATED RINGERS IV ONE (09:43)
[2024-06-15] MEDS: DEXTROSE 5%-WATER 1,000 ML IV SCH (09:44)
[2024-06-15 10:37] LABS: CREATININE 1.5 mg/dL (0.5-1.0); MAGNESIUM 1.7 mg/dL (1.80-2.40); POTASSIUM 3.8 mmol/L (3.5-5.1)
[2024-06-15] MEDS: INSULIN GLARgine 100 UNITS/ML 10 ML VIAL SQ SCH (11:18)
[2024-06-15] MEDS ORDERED: IpraTROPium 0.5 MG/2.5 ML INH IH PRN (11:30)
[2024-06-15] MEDS: INSULIN humuLIN R 100 UNIT/ML 3ML SQ SCH (12:00)
[2024-06-15 14:27] LABS: CREATININE 1.4 mg/dL (0.5-1.0); POTASSIUM 4.2 mmol/L (3.5-5.1)
--- NOTE | 2024-06-15 14:47 | HMCIMG ---
US ARTERIAL BILAT LOW EXT DUPL REASON: asses fro dvt COMPARISON: None TECHNIQUE: Bilateral lower extremity arterial Doppler evaluation was performed with spectral analysis and color flow imaging. FINDINGS: Right lower extremity shows no visible flow. This is true from common femoral artery through the foot. Left lower extremity shows biphasic waveforms common femoral artery through the popliteal artery. Biphasic waveforms are present posterior tibial, anterior tibial and dorsalis pedis arteries as well. There is no evidence of significant arterial inflow occlusion on the left. Impression: 1. Absent blood flow visible in the entire right leg from common femoral artery downward. 2. No evidence of inflow occlusion on the left. 3. These findings discussed with patient's care team at the time of dictation. Bilateral venous Doppler ultrasound was performed as well. There are normal findings on the left. Right leg shows partial deep venous thrombosis in the right proximal and mid superficial femoral vein
[2024-06-15] MEDS ORDERED: acetaMINOPHEN 650 MG SUPPOSITORY RC PRN (15:30)
[2024-06-15] MEDS ORDERED: LORazepam 2 MG/ML 1 ML VIAL IVP PRN (15:30)
[2024-06-15] MEDS ORDERED: ATROPINE SULFATE 5 ML DROPS PO PRN (15:30)
[2024-06-15] MEDS ORDERED: acetaMINOPHEN 325 MG TAB PO PRN (15:30)
[2024-06-15] MEDS ORDERED: ARTIFICAL TEARS SOL 15 ML OU PRN (15:30)
[2024-06-15] MEDS ORDERED: HALOPERIDOL INJ 5 MG/ML VIAL IV PRN ×2 (15:30)
[2024-06-15] MEDS: SCOPOLAMINE HYDROBROMIDE 1 EACH ADH..PATCH TD SCH (17:48)
[2024-06-15] MEDS: morPHINE 2 MG SYG IVP PRN (17:49)
[2024-06-16 04:38] VITALS: BP 135/80; PULSE 76; RESP 19
[2024-06-16 08:00] VITALS: O2SAT 97
--- NOTE | 2024-06-16 10:18 | PN ---
[facility] PROGRESS NOTE Date Patient Seen: Jun 16, 2024 Time of Visit: 10:18 Supervising Physician: [Dr. Gutierrez] Primary Care Physician: Dr Bustamante Outpatient Specialists: [ ] Inpatient Consults: [ ] PROBLEM LIST: Acute metabolic encephalopathy, POA Acute kidney injury, POA Rhabdomyolysis, POA HHS, normal bicarb level on initial BMP, POA Severe dehydration, POA Severe hypernatremia, POA Urinary tract infection, POA Severe sepsis, POA NSTEMI, EKG unremarkable, POA Feeding difficulty in adult, POA Electrolyte abnormality, POA Hypercalcemia, POA Lactic acidosis, likely starvation ketosis POA Suspect right leg ischemia, POA PLAN: Remove NGT Continue comfort measures Patient is DNR Pending hospice INTERVAL HISTORY: Patient continues encephalopathic, altered and lethargic. Patient does not answer to name follow commands. Moans and grimaces. Right lower extremity discolored and cold to touch. Nonpalpable pulse to right foot. On heparin drip per protocol for NSTEMI. Patient has been afebrile since yesterday with a T-max of 100.9. She has been hemodynamically stable with a blood pressure 138/62 with a heart rate in the 80s saturating 96% on room air, urine output 1.3 L. on laboratory today white count decreased to 15.9 H&H 11.9/38.3 with a platelet count of 073422. Lactic acid 5.4 this morning. Sodium 167 chloride 131 BUN 24 creatinine 1.5 with a GFR of 34 slightly improving glucose 144 mg/dL total calcium 8.3 magnesium 1.7 LR 30 mL/kilogram of isotonic fluids ordered and administered per RN. IV fluids changed to D5 at 75 mL/hour. Patient continues on insulin drip. Ultrasound arterial bilateral lower extremity shows absent blood flow with pulling the entire right leg from common femoral artery down work. No evidence of inflow occlusion of the left. Right leg shows partial DVT in the right proximal and mid superficial femoral vein. Spoke to main decision maker over the phone Sandy Crawford, she is unable to come in person to the hospital due to receiving cancer treatment at this time. I discussed with her the current patient findings and informed per patient has grim prognosis. Patient is currently DNR and was previously on hospice. Recommended hospice and comfort measures to avoid suffering. Sandy Crawford main decision maker has agreed for comfort measures only and wishes to stop further painful testing such as needed sticks or painful procedures. She requested for patient to be in comfort measures only while she awaits for hospice evaluation for inpatient Hospice or out of hospital hospice. Notified case resource manager Daisy. 06/16 REVIEW OF SYSTEMS: Unable to obtain due to altered mental status PHYSICAL EXAM: GENERAL: Confused, looks very weak, encephalopathic HEENT: Very dry mucous membrane NECK: Supple, no JVD, trachea midline LUNGS: Clear breath sounds bilaterally. No wheezes HEART: Regular rate and rhythm. Normal S1 and S2, without murmurs ABD: Abdomen soft, nontender. Bowel sounds present EXT: No clubbing cyanosis or edema, right lower extremity discoloration cold to touch absent right pedal pulse. NEURO: Encephalopathic Vital Signs (last 8hr) Date Time Temp Pulse Resp B/P (MAP) Pulse Ox O2 Delivery O2 Flow Rate FiO2 06/16/24 04:38 76 19 135/80 94 Room Air LABS: Hematology Labs: Test 06/15/24 04:13 Range/Units White Blood Count 15.9 #H 4.8-10.8 K/uL Red Blood Count 4.18 # 4.00-5.50 MIL/uL Hemoglobin 11.9 #L 12.0-16.0 g/dL Hematocrit 38.3 # 36-48 % Mean Corpuscular Volume 91.6 79-99 fL Mean Corpuscular Hemoglobin 28.5 27.0-33.0 pg Mean Corpuscular Hemoglobin Concent 31.1 L 32.0-36.0 g/dL Red Cell Distribution Width 15.3 11.0-15.5 % Platelet Count 103 #L 130-400 K/uL Mean Platelet Volume 10.0 7.5-10.5 fL Immature Granulocyte % (Auto) 1.1 H 0-1 % Neutrophils (%) (Auto) 79.3 H 40.0-77.0 % Lymphocytes (%) (Auto) 15.0 L 21.0-51.0 % Monocytes (%) (Auto) 3.8 3.0-13.0 % Eosinophils (%) (Auto) 0.5 0.0-8.0 % Basophils (%) (Auto) 0.3 0.0-5.0 % Neutrophils # (Auto) 12.6 H 1.8-7.7 K/uL Lymphocytes # (Auto) 2.4 1.0-4.8 K/uL Monocytes # (Auto) 0.6 0.1-1.0 K/uL Eosinophils # (Auto) 0.08 0.00-0.70 K/uL Basophils # (Auto) 0.04 0.00-0.20 K/uL Absolute Immature Granulocyte (auto 0.17 0-1 K/uL Nucleated Red Blood Cells 0.0 0.0-0.19 % Chemistry Labs: Test 06/15/24 21:45 06/15/24 13:38 06/15/24 12:10 06/15/24 04:13 Range/Units Lactic Acid Level 1.8 0.8-2.5 mmol/L Magnesium Level 1.70 L 1.80-2.40 mg/dL Total Creatine Kinase 78374 *H 21-232 U/L Sodium Level 162 *H 136-145 mmol/L Potassium Level 4.2 3.5-5.1 mmol/L Chloride Level 126 *H 101-111 mmol/L Carbon Dioxide Level 23 21-32 mmol/L Blood Urea Nitrogen 49 H 7-18 mg/dL Creatinine 1.4 H 0.5-1.0 mg/dL Glomerular Filtration Rate Calc 37 >90 mL/min Random Glucose 164 H 70-105 mg/dL Total Calcium 7.9 L 8.5-10.1 mg/dL Whole Blood Glucose 95 70-110 MG/DL Hemoglobin A1c 11.6 H 4.0-6.0 % Estimated Average Glucose (eAG) 286 H 70-126 mg/dL Phosphorus Level 2.3 L 2.5-4.9 mg/dL Iron Level 34 L 50-170 mcg/dL Total Iron Binding Capacity 111 L 250-450 mcg/dL Percent Iron Saturation 30.6 22-44 % Ammonia < 10 L 11-32 umol/L Troponin I High Sensitivity 468.2 *H 4-50 ng/L Procalcitonin 0.92 H 0.05-0.5 ng/mL Thyroid Stimulating Hormone (TSH) 1.66 0.36-3.74 uIU/mL Test 06/15/24 02:56 06/14/24 17:04 Range/Units Bedside Glucose Comment Notified Nurse Total Bilirubin 0.4 0.2-1.0 mg/dL Direct Bilirubin 0.1 0.0-0.3 mg/dL Aspartate Amino Transf (AST/SGOT) 57 H 10-37 U/L Alanine Aminotransferase (ALT/SGPT) 28 12-78 U/L Alkaline Phosphatase 155 H 50-136 U/L Total Protein 8.3 6.0-8.3 g/dL Albumin 2.8 L 3.5-5.0 g/dL DIAGNOSTICS / RADIOLOGY RESULTS: [ ] PLAN NEURO: Minimize central acting medications as possible. Maintain fall precautions, adequate lighting during the day PULMONARY: Supplemental 02 as needed. Maintain aspiration precautions at all times CARDIOVASCULAR: Follow hemodynamics. Vital signs per facility protocol GI & NUTRITION: Continue with nutritional support. Continue stool softeners and laxatives as needed. KIDNEYS & ELECTROLYTES: Strict monitoring of intake, output and overall fluid balance. Avoid nephrotoxic medications to the extent possible. Medications to be dosed according to renal function. Monitor electrolytes and replace as needed ENDOCRINE: Maintain blood glucose between 100-180 at all times. Hypoglycemia protocol in place INFECTIOUS DISEASE: Trend temperature, WBC and procalcitonin level Follow cultures, deescalate antibiotics as soon as possible. Panculture if new onset fever ONCOLOGY/HEMATOLOGY/COAGULATION: Monitor for s/s of bleeding Monitor hemoglobin, coagulation studies as needed SKIN: Pressure ulcer prevention per facility protocol Specialty mattress ORTHO/REHAB: Continue PT/OT Prophylaxis: Continue GI and DVT prophylaxis Code Status: Full Resuscitation Disposition: TBD Other: Total patient care time exceeds 35 minutes excluding all procedures. ROCK MENESES Jun 16, 2024 10:18
[2024-06-16 12:00] VITALS: BP 179/75; PULSE 88; RESP 16; TEMP 97.8
--- NOTE | 2024-06-16 14:27 | DS ---
[facility] DISCHARGE SUMMARY Date Patient Seen: Jun 16, 2024 Time of Visit: 14:27 Supervising Physician: [Dr. Gutierrez] Primary Care Physician: Dr Bustamante Outpatient Specialists: [ ] Inpatient Consults: [ ] PROBLEM LIST: Acute metabolic encephalopathy, POA Acute kidney injury, POA Rhabdomyolysis, POA HHS, normal bicarb level on initial BMP, POA Severe dehydration, POA Severe hypernatremia, POA Urinary tract infection, POA Severe sepsis, POA NSTEMI, EKG unremarkable, POA Feeding difficulty in adult, POA Electrolyte abnormality, POA Hypercalcemia, POA Lactic acidosis, likely starvation ketosis POA Right leg ischemia, POA PLAN: Remove NGT Continue comfort measures Patient is DNR Pending hospice HOSPITAL COURSE: HPI (per admitting provider) 83-year-old female with past medical history of early dementia, hypertension, DM type 2, hyperlipidemia who presented to ER from a local assisted living facility with complaint of generalized body weakness, alteration in mental status and found to have KAREN, severe hypernatremia, severe sepsis, acute metabolic encephalopathy, rhabdomyolysis, urinary tract infection, and HHS. Patient was seen and examined in ED with her niece present at bedside. According to her, her provided called them initially and informed them of her current condition and says that he will call EMS so that patient will be evaluated in the emergency room. In ED patient was found to be severely encephalopathic, looks very weak, and unable to answer questions appropriately. In ED chest x-ray was done and showed no acute intrapulmonary process, however [place] [address], hemoglobin of 15 , and hematocrit of 48, her chemistry is significant for sodium level of 162, serum glucose of 800, creatinine level of 2.4, BUN of 75, initial troponin level of 83, and CK level of more than 2100. Her lactic acid was also elevated at 4.5. Her UA is significant for leukoesterase there is also mild ketonuria. COVID and flu tests are currently pending at this time. In ED patient was started on IV fluids, empiric antibiotics, and insulin drip per [facility] protocol. We will obtain renal ultrasound and stat head CT. Patient is unmarried, and does not have any children. Her POA is her sister. Apparently patient was hospice but family verbalized desire for medical management. Waiting for family members to decide on code status at this time. Unable to complete ROS due to current mental state. Patient is encephalopathic and unable to answer questions appropriately, visibly weak and nonverbal. At present patient is currently hemodynamically stable, afebrile, and currently on insulin drip. We will start patient on free water flushes via NGT and we will do serial labs per [facility] protocol. Patient continues encephalopathic, altered and lethargic. Patient does not answer to name follow commands. Moans and grimaces. Right lower extremity discolored and cold to touch. Nonpalpable pulse to right foot. On heparin drip per protocol for NSTEMI. Patient has been afebrile since yesterday with a T-max of 100.9. She has been hemodynamically stable with a blood pressure 138/62 with a heart rate in the 80s saturating 96% on room air, urine output 1.3 L. on laboratory today white count decreased to 15.9 H&H 11.9/38.3 with a platelet count of 400109. Lactic acid 5.4 this morning. Sodium 167 chloride 131 BUN 24 creatinine 1.5 with a GFR of 34 slightly improving glucose 144 mg/dL total calcium 8.3 magnesium 1.7 LR 30 mL/kilogram of isotonic fluids ordered and administered per RN. IV fluids changed to D5 at 75 mL/hour. Patient continues on insulin drip. Ultrasound arterial bilateral lower extremity shows absent blood flow with pulling the entire right leg from common femoral artery down work. No evidence of inflow occlusion of the left. Right leg shows partial DVT in the right proximal and mid superficial femoral vein. Spoke to main decision maker over the phone Sandy Crawford, she is unable to come in person to the hospital due to receiving cancer treatment at this time. I discussed with her the current patient findings and informed per patient has grim prognosis. Patient is currently DNR and was previously on hospice. Recommended hospice and comfort measures to avoid suffering. Sandy Crawford main decision maker has agreed for comfort measures only and wishes to stop further painful testing such as needed sticks or painful procedures. She requested for patient to be in comfort measures only while she awaits for hospice evaluation for inpatient Hospice or out of hospital hospice. Patient had NGT removed and placed on comfort measures per family request. She was discharged to home with hospice. Pt hemodynamically stable and afebrile at time of discharge. PCP notified of patients admission, hospital course and discharge. PHYSICAL EXAM: GENERAL: Confused, looks very weak, encephalopathic HEENT: Very dry mucous membrane NECK: Supple, no JVD, trachea midline LUNGS: Clear breath sounds bilaterally. No wheezes HEART: Regular rate and rhythm. Normal S1 and S2, without murmurs ABD: Abdomen soft, nontender. Bowel sounds present EXT: No clubbing cyanosis or edema, right lower extremity discoloration cold to touch absent right pedal pulse. NEURO: Encephalopathic FOLLOW-UP: DC Home with [facility]. DC all middle or intermediate school principal treatment medications upon discharge. Start meds as indicated per medical tour director. RECOMMENDATIONS: See Discharge Instructions This case was seen and discussed with my supervising physician. More than 30 minutes spent on discharge process, including evaluation of the patient, discussion with nursing staff, medication reconciliation and follow-up appointments ROCK MENESES Jun 16, 2024 14:27
[2024-06-16] MEDS ORDERED: VANCOMYCIN 750MG VIAL IVPB SCH (17:00)
== END 2024-06-16 17:15 | disposition hospice, home (50) | DRG 871 ==
LOC: EDBD 16:47 → EDH 16:47 → MERGE 18:45 → EDHIP 18:45 → 2BH 21:09 → 4AH 06-15 22:45
PROVIDERS: ADMIT Internal Medicine Critical Care Medicine; ATTEND Internal Medicine Critical Care Medicine
DX: A41.9 Sepsis, unspecified organism (principal); E11.00 Type 2 diabetes mellitus with hyperosmolarity without nonketotic hyperglycemic-hyperosmolar coma (NKHHC); G93.41 Metabolic encephalopathy; I21.4 Non-ST elevation (NSTEMI) myocardial infarction; M62.82 Rhabdomyolysis; E87.0 Hyperosmolality and hypernatremia; N17.9 Acute kidney failure, unspecified; N39.0 Urinary tract infection, site not specified; E87.20 Acidosis, unspecified; G30.9 Alzheimer's disease, unspecified; R65.20 Severe sepsis without septic shock; E11.51 Type 2 diabetes mellitus with diabetic peripheral angiopathy without gangrene; F02.80 Dementia in other diseases classified elsewhere, unspecified severity, without behavioral disturbance, psychotic disturbance, mood disturbance, and anxiety; E78.00 Pure hypercholesterolemia, unspecified; E86.0 Dehydration; E83.52 Hypercalcemia; I10 Essential (primary) hypertension; Z66 Do not resuscitate; R63.30 Feeding difficulties, unspecified; Z51.5 Encounter for palliative care; Z79.899 Other long term (current) drug therapy
CPT/HCPCS: 36415; 70450; 71045; 76770; 80048; 80076; 80305; 81001; 82140; 82550; 82948; 83036; 83540; 83550; 83605; 83735; 84100; 84145; 84443; 84484; 85025; 86022; 87040; 87086; 87186; 93005; 93925; 93970; 94640; 94664; 96365; 96372; 96375; 99291; G0378; J1644; J1815; J2270; J2470; J2543; J3370; J3475; J3480; P9045